=== PATIENT | female | born 1955 | race Caucasian/White ===

== ENCOUNTER 2019-05-14 11:07 | Emergency (ER) | payer SELFPAY ==
--- NOTE | 2019-05-14 12:47 | ER Document Report ---
ED Medical Screen (RME) - General Stated Complaint: LOWER BACK PAIN Time Seen by Provider: 05/14/19 12:40 Mode of Arrival: Ambulatory Information source: Patient Notes: This 63-year-old female presents to the emergency department with complaints of lower abdominal pain and back pain. Patient gives history of hysterectomy 20 years ago. Reports her stomach started hurting after that. She reports she has been diagnosed with sciatica twice since that time. She also reports that the pain radiates to her stomach. She has been told that she may have adhesions. Patient is here because her stomach still hurts. Denies fever vomiting diarrhea. Denies pain with void. Reports she is eating drinking voiding bowel movement as normal. I have greeted and performed a rapid initial assessment of this patient. A co mprehensive ED assessment and evaluation of the patient, analysis of test results and completion of the medical decision making process will be conducted by additional ED providers. - Related Data Allergies/Adverse Reactions: Sulfa (Sulfonamide Antibiotics) Allergy (Verified 05/14/19 12:39) Physical Exam - Vital signs Vitals: Temp Pulse Resp BP Pulse Ox 98.2 F 83 18 129/87 H 99 05/14/19 11:24 05/14/19 11:24 05/14/19 11:24 05/14/19 11:24 05/14/19 11:24 Course - Vital Signs Vital signs: Temp Pulse Resp BP Pulse Ox 98.2 F 83 18 129/87 H 99 05/14/19 11:24 05/14/19 11:24 05/14/19 11:24 05/14/19 11:24 05/14/19 11:24
[2019-05-14 14:10] LABS: APPEARANCE,URINE SLIGHTLY-CLOUDY; BILIRUBIN,URINE NEGATIVE (NEGATIVE); COLOR,URINE YELLOW; GLUCOSE, URINE NEGATIVE (NEGATIVE); KETONES,URINE TRACE mg/dL (NEGATIVE); LEUKOCYTE ESTERASE,URINE SMALL (NEGATIVE); NITRITE,URINE NEGATIVE (NEGATIVE); PROTEIN,URINE 30 mg/dL (NEGATIVE); URINE SPECIFIC GRAVITY 1.027; UROBILINOGEN,URINE NEGATIVE mg/dL (<2.0)
[2019-05-14 14:18] LABS: ABSOLUTE BASOPHILS # (AUTO) 0.2 10^3/uL (0.0-0.2); ABSOLUTE EOSINOPHILS # (AUTO) 0.7 10^3/uL (0.0-0.6); ABSOLUTE LYMPHOCYTES (AUTO) 2.6 10^3/uL (0.5-4.7); ABSOLUTE MONOCYTES (AUTO) 0.7 10^3/uL (0.1-1.4); ABSOLUTE NEUT (AUTO) 7.5 10^3/uL (1.7-8.2); BASOPHILS % (AUTO) 1.7 % (0-2); EOSINOPHILS % (AUTO) 5.8 % (0-6); HEMATOCRIT 41.2 % (36.0-47.0); HEMOGLOBIN 13.9 g/dL (12.0-15.5); LYMPHOCYTES % (AUTO) 22.5 % (13-45); MEAN CORPUSCULAR HEMOGLOBIN 27.9 pg (27.0-33.4); MEAN CORPUSCULAR HGB CONC 33.8 g/dL (32.0-36.0); MEAN CORPUSCULAR VOLUME 83 fl (80-97); MONOCYTES % (AUTO) 5.9 % (3-13); PLATELET COUNT 282 10^3/uL (150-450); RED BLOOD COUNT 4.99 10^6/uL (3.72-5.28); RED CELL DISTRIBUTION WIDTH 13.3 % (11.5-14.0); SEGMENTED NEUTROPHILS % (AUTO) 64.1 % (42-78); TOTAL CELLS COUNTED % (AUTO) 100 %; WHITE BLOOD COUNT 11.8 10^3/uL (4.0-10.5)
[2019-05-14 14:25] LABS: ALBUMIN 4.4 g/dL (3.5-5.0); ALKALINE PHOSPHATASE 139 U/L (38-126); ANION GAP 7 (5-19); ASPARTATE AMINO TRANSFERASE 26 U/L (14-36); BILIRUBIN,DIRECT 0.1 mg/dL (0.0-0.4); BILIRUBIN,TOTAL 0.3 mg/dL (0.2-1.3); BLOOD UREA NITROGEN 13 mg/dL (7-20); CALCIUM 9.7 mg/dL (8.4-10.2); CARBON DIOXIDE 28 mmol/L (22-30); CHLORIDE 104 mmol/L (98-107); GLUCOSE 98 mg/dL (75-110); POTASSIUM 4.5 mmol/L (3.6-5.0); TOTAL PROTEIN 7.4 g/dL (6.3-8.2)
[2019-05-14] MEDS ORDERED: CYCLOBENZAPRINE HCL 10 MG TABLET PO ONE (15:57)
--- NOTE | 2019-05-14 16:02 | ER Document Report ---
ED General - General Chief Complaint: Abdominal Pain Stated Complaint: LOWER BACK PAIN Time Seen by Provider: 05/14/19 12:40 Mode of Arrival: Ambulatory Notes: 63-year-old female presents emergency department complaining of intermittent low abdominal pain that is been going on for the past 20 years since she had her h ysterectomy and intermittent low back pain for the past year that became worse for the past 2 days. Patient states for the past 2 days she has been having spasms in her low back, pain around her tailbone that feels like it is going to come out through her skin and that she has been having to lay on the back and cry on the floor because of the degree of pain. States that she has been seen previously for this type of pain 3 separate times in the past year. States that she was diagnosed with sciatica all 3 times, treated with steroids twice and by chiropractor once without any relief. Denies any bowel or bladder dysfunction, denies any saddle anesthesia, denies any dysuria, denies any fevers, states that the pain does start in her low back and radiates down the back of her legs, states it makes that her back of her legs feel numb but denies any radiation past her knees. Denies any history of trauma. 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 States the low abdominal pain tends to worsen when the back pain worsens, states that the back pain actually radiates to her low abdomen. States that sometimes the pain gets so bad that she will have vomiting with it. This is been going on for the past year. There has been no change in the vomiting or the abdominal pain in the past 2 days. TRAVEL OUTSIDE OF THE [place] IN LAST 30 DAYS: No - Related Data Allergies/Adverse Reactions: Sulfa (Sulfonamide Antibiotics) Allergy (Verified 05/14/19 12:39) Home Medications: motrin Past Medical History - General Information source: Patient - Social History Smoking Status: Current Every Day Smoker Chew tobacco use (# tins/day): No Frequency of alcohol use: None Drug Abuse: None Family History: Reviewed & Not Pertinent Patient has suicidal ideation: No Patient has homicidal ideation: No Review of Systems - Review of Systems Constitutional: No symptoms reported. denies: Fever EENT: No symptoms reported Gastrointestinal: See HPI, Abdominal pain, Nausea, Vomiting. denies: Diarrhea Genitourinary: No symptoms reported. denies: Burning, Dysuria, Discharge, Incontinence Musculoskeletal: See HPI, Back pain -: Yes All other systems reviewed and negative Physical Exam - Vital signs Vitals: Temp Pulse Resp BP Pulse Ox 98.2 F 83 18 129/87 H 99 05/14/19 11:24 05/14/19 11:24 05/14/19 11:24 05/14/19 11:24 05/14/19 11:24 Interpretation: Normal - Notes Notes: GENERAL: Alert, interacts well. No acute distress. HEAD: Normocephalic, atraumatic EYES: Pupils equal, round and reactive to light, extraocular movements intact. ENT: Oral mucosa moist, tongue midline. NECK: Full range of motion, supple, trachea midline. LUNGS: Clear to auscultation bilaterally, no wheezes, rales or rhonchi, no respiratory distress. HEART: Regular rate and rhythm, no murmurs, gallops, rubs. ABDOMEN: Soft, nontender, nondistended, bowel sounds present in all 4 quadrants. BACK: No step-offs, no deformities, no midline bony tenderness palpation, minimal tenderness across the buttocks along the sciatic nerves bilaterally, negative straight leg raising test, no saddle anesthesia, 5 out of 5 great toe raising strength bilaterally. She does have some mild paraspinal muscle tenderness to palpation around the lower lumbar spine. EXTREMITIES: Moves all 4 extremities spontaneously, no edema, radial and dorsalis pedis pulses 2/4 bilaterally. No cyanosis. NEUROLOGICAL: Alert and oriented x3, normal speech, biceps and patellar DTRs 2+ bilaterally. PSYCH: Normal mood, normal affect. SKIN: Warm, Dry, normal turgor, no rashes or lesions noted. Course - Re-evaluation Re-evalutation: 05/14/19 16:02 No sign of cauda equina syndrome, no indication for x-rays on a patient who has had back pain for over a year, no red flag symptoms, discussed with patient that she may benefit from an MRI as an outpatient as the back pain is been going on for over a year however for the acute change in her symptoms which is really best described by her as muscle spasms patient will be started on a muscle re laxer in the form of Flexeril and discharged to home. For the intermittent vomiting patient has also been prescribed Zofran. Discussed with her that her previous diagnosis of adhesion causing her low abdominal pain may be true but this is not something we will be able to diagnose or alleviate in the emergency department. Patient is agreeable to being discharged to home and following up with primary care physician as an outpatient. Patient does not actually have a primary care physician at this time, she will be given the names of several practices that are currently accepting patients. 05/14/19 16:04 CBC shows minimal leukocytosis at 11.8, CMP grossly unremarkable, lipase normal, urinalysis shows trace ketones and small leukocyte esterase, 2 squamous epithelial cells, this is likely contaminant. - Vital Signs Vital signs: Temp Pulse Resp BP Pulse Ox 98.2 F 83 18 129/87 H 99 05/14/19 11:24 05/14/19 11:24 05/14/19 11:24 05/14/19 11:24 05/14/19 11:24 - Laboratory Result Diagrams: 05/14/19 13:30 05/14/19 13:30 Laboratory results interpreted by me: 05/14/19 05/14/19 05/14/19 13:30 13:30 13:30 WBC 11.8 H Absolute Eos (auto) 0.7 H Est GFR (MDRD) Non-Af 54 L Alkaline Phosphatase 139 H Urine Protein 30 H Urine Ketones TRACE H Ur Leukocyte Esterase SMALL H Urine Ascorbic Acid 40 H Discharge - Discharge Clinical Impression: Spasm of lumbar paraspinous muscle, Acute exacerbation of chronic low back pain, Abdominal pain, chronic, bilateral lower quadrant Condition: Stable Disposition: HOME, SELF-CARE Additional Instructions: Low Back Pain Three out of every four people will have an episode of disabling back pain during their lifetime. Most commonly the pain is due to straining of the muscles and ligaments in the low back. Usual treatment includes: (1) Rest on a firm surface. Avoid lying on your stomach. (2) Ice pack the painful area. After a few days, gentle heat may be used intermittently to relax the area, or ice packs can be continued. (3) Medication may be needed -- muscle relaxers and antiinflammatory medicines are commonly used. I have prescribed Flexeril, you may take 5 to 10 mg every 8 hours as needed for pain over the next 3 days. You may also take ibuprofen 600 mg every 8 hours as needed for low back pain. Do not take this for more than 5 days in a row. (4) As the back improves, exercises are prescribed to strengthen the back and abdominal muscles. Your doctor will advise you on the proper care for your back at each stage in your recovery. You may be better in a few days -- or healing may take several weeks. If new symptoms of a "herniated disc" (radiation of pain, numbness, or tingling down the back of the leg or weakness in the leg) occur, you should be re-examined. Further testing may be necessary. Abdominal Pain There are many causes of abdominal pain. Pain can mean a serious problem requiring surgery (such as appendicitis). It can also be an innocent problem that goes away on its own (such as a viral infection). Often, time must pass to determine the cause of pain. The physician does not feel that hospitalization is necessary, at present. Things may change within the next 24 hours. Call the doctor or come back for re-examination if any problems occur, such as: (1) Pain that becomes more severe, steady, or becomes concentrated in one specific area. Also, pain that is more severe with movement or coughing. (2) Vomiting that persists or becomes more frequent. I have prescribed Zofran to be put under the tongue to help with vomiting as needed no more than every 4 hours. (3) Blood in the vomitus, urine, or bowel movements. Blood in the stool may have a tarry or black appearance. (4) Shaking chills or fever greater than 100 degrees F. (5) The abdomen becomes more distended or swollen. (6) Bowel movements cease. (7) Failure to improve as expected. I suspect your abdominal pain is likely due to adhesions as noted by other physicians, however this is not something we can diagnose in the emergency department. It is very important that you follow-up with a primary care physician as an outpatient. [facility]'s multispecialty clinic is always accepting new patients. If you do not have insurance you could also call the [facility] which is a low cost clinic associated with the hospital to see if they are accepting new patients at this time. Prescriptions: Ondansetron [Zofran Odt 4 mg Tablet] 4 mg PO Q4HP PRN #14 tab.rapdis PRN Reason: Cyclobenzaprine HCl [Flexeril 10 mg Tablet] 5 - 10 mg PO TIDP PRN #15 tablet PRN Reason: Referrals: ERNIE ORTEGA DO [NO LOCAL MD] - Follow up as needed ANDREW COE MD [EMERITUS] - Follow up as needed
[2019-05-14 16:28] VITALS: BP 128/78
== END 2019-05-14 16:28 | disposition home or self-care (01) ==
LOC: ER 11:07
DX: M62.830 Muscle spasm of back (principal); R10.30 Lower abdominal pain, unspecified; R11.2 Nausea with vomiting, unspecified; F17.200 Nicotine dependence, unspecified, uncomplicated; G89.29 Other chronic pain; M54.5 Low back pain; Z90.710 Acquired absence of both cervix and uterus; Z88.2 Allergy status to sulfonamides
CPT/HCPCS: 36415; 80053; 81001; 83690; 85025

== ENCOUNTER → 2019-12-29 | Outpatient (CLI) | payer OTHER ==
--- NOTE | 2019-12-30 16:45 | WOMENS IMAGING REPORT ---
EXAM DESCRIPTION: BILAT DIAGNOSTIC MAMMO W/CAD IMAGES COMPLETED DATE/TIME: 12/29/2019 9:30 am REASON FOR STUDY: N64.4 MASTODYNIA N64.4 MASTODYNIA COMPARISON: None. EXAM PARAMETERS: Standard craniocaudal and mediolateral oblique views of each breast recorded using digital acquisition. True lateral view of each breast. Spot compression views in orthogonal planes of the right breast. Read with the assistance of CAD: .[employer] Version 9.2 LIMITATIONS: None. FINDINGS: RIGHT BREAST MASSES: No suspicious masses. CALCIFICATIONS: No new or suspicious calcifications. ARCHITECTURAL DISTORTION: None. ASYMMETRY: Retroareolar asymmetry without a focal mass OTHER: No other significant findings. LEFT BREAST MASSES: 1.2 cm mass at 12 o'clock. There is an adjacent clip. Masses slightly irregular. CALCIFICATIONS: No new or suspicious calcifications. ARCHITECTURAL DISTORTION: None. ASYMMETRY: None noted. OTHER: No other significant finding. BREAST ULTRASOUND: TECHNIQUE: Static and dynamic grayscale images acquired of the right and left breast in the specific areas of clinical/mammographic concern. Selected color Doppler images recorded. ELASTOGRAPHY PERFORMED: No. LIMITATIONS: None. FINDINGS: MASS: Retroareolar right breast with dilated ducts. No focal mass. Retroareolar left breast with dilated ducts. No focal mass. 1.4 x 1.2 x 0.9 cm heterogeneous solid mass. Adjacent biopsy clip. ELASTOGRAPHY CHARACTERISTICS:Not applicable. OTHER: No other significant finding. IMPRESSION: No explanation for retracted nipples. Retroareolar dilated ducts bilateral. Mass in the left breast which is been previously biopsied. BREAST DENSITY: b. There are scattered areas of fibroglandular density. BIRAD: ASSESSMENT: 0 Incomplete: Needs additional imaging evaluation and/or prior mammograms for co mparison. Report from prior mammography and biopsy should be obtained and correlated with the curren t mass in the left breast. If not available, repeat left breast ultrasound-guided biopsy. BI-RADS 1 right breast. RECOMMENDATION: RECOMMENDED FOLLOW UP: Obtain prior report and pathology from left breast mass. SPECIFIC INTERVENTION/IMAGING/CONSULTATION RECOMMENDED:If that cannot be obtained, the an repeat biop sy should be performed of the left breast mass. COMMUNICATION:The imaging findings were not discussed with the patient. Her referring provider has be en notified of the findings. COMMENT: The patient has been notified of the results by letter per [place] requirements. Additional no tification policies are in place for contacting patient with suspicious or incomplete findings. Quality ID #[id number]: The [employer] recommends an annual screening mammogram for women aged 40 years or over. This facility utilizes a reminder system to ensure that all patients receive reminder letters, and/or direct phone calls for appointments. This includes reminders for routine scr eening mammograms, diagnostic mammograms, or other Breast Imaging Interventions when appropriate. Th is patient will be placed in the appropriate reminder system. TECHNICAL DOCUMENTATION: FINDING NUMBER: (1) ASSESSMENT: (1) JOB ID: [id number] 2010 [employer]- All Rights Reserved Reading location - IP/workstation name: [email or web address]
== END ==
LOC: WI 09:00
PROVIDERS: ATTEND Nurse Practitioner Family
DX: N64.4 Mastodynia (principal)
CPT/HCPCS: 76642; 77066